=== PATIENT | male | born 2000 | race Caucasian/White ===

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

== ENCOUNTER 2021-12-20 11:20 | Emergency (ER) | payer SELFPAY ==
--- NOTE | 2021-12-20 11:31 | W.ED.GENADLT ---
HPI - General Adult General: Stated complaint: Rt shoulder popped cant move Time Seen by Provider: 12/20/21 11:31 History of Present Illness: Onset:[] Duration:[] Location:[] Severity:[] Associated symptoms: Deny chest pain, dyspnea, nausea, rash, palpitations or vomiting Review of Systems Const: Denies: fever(s) or chills Eyes: Denies: change in vision ENMT: Denies: mouth pain Card: Denies: chest pain or palpitations Resp: Denies: dyspnea or non-productive cough GI: Denies: abdominal pain, nausea, vomiting or diarrhea : Denies: dysuria Musc: Denies: extremity pain Skin/Breast: Denies: rash or new lesions Neuro: Denies: weakness in extremities Psych: Reports: other (Normal mood) Chirstiano/Lymph: Denies: easy bruising PFSH ED PFSH: Family History (Updated 11/14/19 @ 16:01 by Robina Romero LPN) Other Asthma Social History (Updated 11/14/19 @ 16:02 by Robina Romero LPN) Smoking and tobacco status: heavy tobacco smoker smokeless tobacco Smokeless tobacco user: chewing tobacco Alcohol intake: never Caregiver/support person: Yes Lives independently: No Household members: family Current occupational status: employed History of recent travel: No Sexually active: Yes Current gender identity: Male Physical Exam Const: COMMON NORMALS: alert HENMT: COMMON NORMALS: atraumatic HEAD & SCALP: atraumatic MOUTH: moist mucous membranes not abnormal Eye: COMMON NORMALS: EOMs intact bilaterally and conjunctivae normal CONJUNCTIVA: Yes conjunctivae normal Neck/C-Spine: COMMON NORMALS: full ROM and supple Resp: COMMON NORMALS: normal respiratory effort and clear to auscultation bilaterally AUSCULTATION: clear to auscultation bilaterally Cardio: COMMON NORMALS: regular rate RATE: regular rate GI: COMMON NORMALS: Soft to palpation and non-tender PALPATION: Yes Soft to palpation Extremity: COMMON NORMALS: full ROM Neuro: SENSORIUM/ORIENTATION: Yes alert MOTOR EXAM: No Abnormal motor strength present and Other motor observations present (no focal motor deficits) Psych: COMMON NORMALS: speech normal SPEECH: Yes normal speech MOOD & AFFECT: Yes euthymic mood Discharge Plan Discharge Condition: Stable Prescriptions: No Action No Known Home Medications 0RF Referrals: Hua Quinones FNP [Primary Care Provider] - Coding Level of Care Code ED Wardrobe Manager for Dandy Levy
--- NOTE | 2021-12-20 11:32 | XRR_ITS ---
PROCEDURE INFORMATION: Exam: XR Right Shoulder Exam date and time: 12/20/2021 1:50 PM Age: 21 years old Clinical indication: Pain; Shoulder; Right; Additional info: Eval for shoulder dislocation TECHNIQUE: Imaging protocol: XR Right shoulder. Views: 2 or more views. COMPARISON: CT cervical spin wo con* [id number] 12/20/2021 1:46 PM FINDINGS: Bones/joints: No radiographic evidence of acute fracture. Moderate widening of the acromioclavicular joint with elevation the clavicle relative to the acromion, consistent with type III separation. Soft tissues: Mild soft tissue swelling. XR/XR shoulder RT min 2V* [id number] IMPRESSION: Type III acromioclavicular joint separation.
[2021-12-20 11:35] VITALS: BP 147/91; PULSE 74; RESP 18; TEMP 36.8; O2SAT 98; BMI 24.4
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
[2021-12-20 14:50] VITALS: BP 147/80; PULSE 76; RESP 16; O2SAT 96
[2021-12-20] MEDS: HYDROcodone-acetaminophen 5-325 mg Tablet 1 TAB PO (14:51)
--- NOTE | 2021-12-20 15:07 | PC.NURSE ---
Arm sling placed on right arm.
== END 2021-12-20 15:12 | disposition home or self-care (01) ==
PROVIDERS: Emergency Provider Nurse Practitioner Family; PCP Nurse Practitioner Family
DX: S43.101A Unspecified dislocation of right acromioclavicular joint, initial encounter (principal); V86.55XA Driver of 3- or 4- wheeled all-terrain vehicle (ATV) injured in nontraffic accident, initial encounter; S22.31XA Fracture of one rib, right side, initial encounter for closed fracture; F17.220 Nicotine dependence, chewing tobacco, uncomplicated
CPT/HCPCS: 70450; 71101; 72125; 73030; 99283

== ENCOUNTER 2024-11-23 16:27 | Emergency (ER) | payer SELFPAY ==
[2024-11-23 16:30] VITALS: BP 120/70; PULSE 62; TEMP 36.5; O2SAT 99; BMI 22.8
--- NOTE | 2024-11-23 16:51 | ED_ITS ---
HPI - Fall General: Chief Complaint: Fall Stated Complaint: left side rib pain from previous fall Time Seen by Provider: 11/23/24 16:48 Source: patient and other (girlfriend) Mode of arrival: ambulatory Limitations: no limitations History of Present Illness: Patient is a 24-year-old male who presents today following a fall a few days ago. Patient notes that he accidentally fell from his porch at a height 2-3 feet and landed onto his left ribs on an air compressor. Has had some pain since but tolerable-alleviated some with Aleve. However, today patient was at work when he felt a loud pop in his chest after coughing and now feels like it is sharp/stabbing. Pain worse with coughing/deep breaths. No abdominal pain. Denies SOB. complaint: fall Onset (ago): day(s) Fall from: standing Fall witnessed: no Place fall occurred: home Loss of consciousness: None Prolonged down time: no Symptoms prior to fall: none Context: tripped/slipped Location of injury: chest Severity scale (1-10): 7 Quality: sharp and stabbing Associated symptoms-after fall: Reports chest pain (Left rib tenderness); Denies abdominal pain, difficulty walking, headache(s), hematuria, lightheadedness, neck pain or numbness Related Data Home Medications ?Medication ?Instructions ?Recorded ?Confirmed No Known Home Medications 11/23/2411/14 Allergies Allergy/AdvReac Type Severity Reaction Status Date / Time No Known Allergies Allergy Verified 08/18/22 15:43 Review of Systems Const: Denies: fever(s) Card: Reports: chest pain (Left rib tenderness); Denies: palpitations, irregular heart rhythm, edema, lightheadedness, syncope, pre-syncope, dyspnea on exertion or orthopnea Resp: Denies: dyspnea GI: Denies: abdominal pain : Denies: flank pain or hematuria Musc: Denies: neck pain, back pain, extremity pain or joint swelling Skin/Breast: Denies: rash Neuro: Denies: headache(s), numbness in extremities, weakness in extremities or difficulty walking PFS ED PFSH: Family History Other Asthma Social History Smoking and tobacco/nicotine status: never used tobacco/nicotine Alcohol intake: never Substance/Drug Use: never Caregiver/support person: Yes Lives independently: No Household members: family Current occupational status: employed Sexually active: Yes Do you think of yourself as: Straight/Heterosexual Current gender identity: Male Physical Exam Const: COMMON NORMALS: no acute distress, average body habitus, patient oriented x3, no limitations, healthy appearing, alert and well nourished GENERAL APPEARANCE: cooperative and comfortable ORIENTATION/CONSCIOUSNESS: Yes awake, Yes oriented to person, Yes oriented to place and Yes oriented to time Chest: CHEST: Yes Symmetrical chest wall rise, No crepitus and Yes tenderness (L anteriolateral upper rib) rib Resp: COMMON NORMALS: normal respiratory effort, No retractions, No use of accessory muscles and clear to auscultation bilaterally AUSCULTATION: clear to auscultation bilaterally Cardio: COMMON NORMALS: regular rate and regular rhythm RATE: regular rate RHYTHM: regular rhythm GI: COMMON NORMALS: Normal to inspection, nondistended, normoactive bowel sounds present, Soft to palpation, non-tender and No hepatosplenomegaly present INSPECTION: Yes normal to inspection PALPATION: Yes Soft to palpation and Yes No hepatosplenomegaly present : COMMON NORMALS: Yes no CVA tenderness BLADDER/KIDNEY EXAM: Yes no CVA tenderness Back/Pelvis: COMMON NORMALS: no CVA tenderness, thoracic and lumbar spine normal to inspection and no thoracic nor lumbar tenderness Extremity: GENERAL: Yes normal exam except as noted Neuro: COMMON NORMALS: patient oriented x3 SENSORIUM/ORIENTATION: Yes alert, Yes oriented to person, Yes oriented to place and Yes oriented to time Course Vital Signs: Vital signs: Vital Signs Temperature 97.7 F 11/23/24 16:30 Pulse Rate 62 11/23/24 17:43 Blood Pressure 133/59 11/23/24 17:43 Pulse Oximetry 99 11/23/24 17:43 Oxygen Delivery Me thod Room Air 11/23/24 16:30 MDM - Fall Medical Decision Making Patient here for left-sided rib contusion. Conservative therapies discussed. Discussed following up with primary care if symptoms or not improving. Medical Records I reviewed the patient's medical records. Lab Data I reviewed the patient's lab results. Radiology Impressions Ribs X-Ray 11/23/24 16:51 IMPRESSION: No acute findings. XR interpretation done by ED provider, pending radiology final review Discharge Plan Discharge Patient Disposition: Home Clinical Impression: Contusion of rib on left side Qualifiers: Encounter type: initial encounter Qualified Code(s): S20.212A - Contusion of left front wall of thorax, initial encounter Condition: Stable Prescriptions: No Action No Known Home Medications Discharge Orders: Discharge ED (Routine); Ordered 11/23/24 Ordered By: Beba August Referrals: Sathya Quinones FNP [Primary Care Provider] - Patient Instructions: Rib Contusion (ED) Activity Restrictions/Additional Instructions: As we discussed, I did not visualize any acute fractures on your rib films today. We will have radiology over read x-rays and if there are any discrepancies, you will be contacted. He may apply ice and/or heat to the area. You may begin taking [id number] analgesics such as Tylenol and Ibuprofen. You may follow-up with primary care in 1 to 2 weeks if symptoms are not improving. You may return to the emergency department for severe chest pain, shortness of breath, difficulty breathing, abdominal pain, or any other concerns you may have. 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
--- NOTE | 2024-11-23 16:51 | XRR_ITS ---
PROCEDURE INFORMATION: Exam: XR Left Ribs with PA Chest Exam date and time: 11/23/2024 5:01 PM Age: 24 years old Clinical indication: Injury or trauma; Fall; Rib area, left side; Blunt trauma TECHNIQUE: Imaging protocol: Radiologic exam of the left ribs with PA chest. Views: 3 views COMPARISON: CR XR ribs LT mn 3V w CXR1V [id number] 12/20/2021 1:54 PM FINDINGS: Lungs: Unremarkable. No consolidation. Pleural spaces: Unremarkable. No pleural effusion. No pneumothorax. Heart/Mediastinum: Unremarkable. No cardiomegaly. Bones/joints: Unremarkable. No acute rib fracture visualized. XR/XR ribs LT mn 3V w CXR1V [id number] IMPRESSION: No acute findings.
[2024-11-23 17:43] VITALS: BP 133/59; PULSE 62; O2SAT 99
[2024-11-23 17:59] VITALS: BP 130/59; PULSE 56; O2SAT 95
== END 2024-11-23 18:00 | disposition home or self-care (01) ==
PROVIDERS: Emergency Provider Physician Assistant; PCP Nurse Practitioner Family
DX: S20.212A Contusion of left front wall of thorax, initial encounter (principal); W19.XXXA Unspecified fall, initial encounter
CPT/HCPCS: 71101; 99283